=== PATIENT | female | born 1940 | race Caucasian/White ===

== ENCOUNTER → 2016-10-13 | Outpatient (CLI) | payer OTHER ==
[~2016-10-13] MED LIST: ATEN50TA PO; CALCTAB5 PO; LEVO88TA3 PO; MULT-506 PO; PRLSR20 PO; SIMV20TA5 PO
[2016-10-13 12:25] LABS: MEAN CORPUSCULAR HGB CONC 34.5 g/dl (32-36); PLATELET COUNT 120 K/uL (130-400)
[2016-10-13 12:55] LABS: HEMATOCRIT 26.1 % (37-47); MEAN CELL VOLUME 100.8 fL (80-100); MEAN CORPUSCULAR HEMOGLOBIN 34.7 pg (25-34); RED BLOOD COUNT 2.59 M/uL (4.2-5.4); WHITE BLOOD COUNT 25.65 K/uL (4.8-10.8)
[2016-10-13 13:16] LABS: ANISOCYTOSIS PRESENT; POLYCHROMASIA 1+
[2016-10-13 14:04] LABS: COMPLETE YES; EOSINOPHIL % 0.8 %; LYMPH ABS # 5.08 K/uL (1.2-3.4); LYMPHOCYTE % 19.8 %; NEUTROPHILS % 3.3 %
== END | disposition home or self-care (01) ==
LOC: C.LABBFT 09:53
PROVIDERS: ATTEND Nurse Practitioner
DX: D64.9 Anemia, unspecified (principal)